=== PATIENT | male | born 1970 | race Caucasian/White ===

== ENCOUNTER 2018-05-28 15:42 | Emergency (ER) | payer OTHER, SELFPAY ==
[2018-05-28 15:43] VITALS: BP 148/81; PULSE 73; RESP 16; TEMP 36.7; O2SAT 100; BMI 29.3
--- NOTE | 2018-05-28 15:52 | ED.VISSUMM ---
- ER Visit Summary Date of Service: 05/28/18 Chief Complaint: Back pain History of Present Illness: The patient is a 47 M who has had back pain for 26 years. The pain is in the lumbar part of his back. It does not radiate. Denies numbness or tingling. He denies urinary retention or incontinence. No constipation. He saw his primary care physician who gave him naproxen and Flexeril. He is out of both of these medications. Physical Examination: Vital signs reviewed. Heart is regular rate and rhythm. Lungs are clear. Abdomen soft and nontender. Back exam reveals no tenderness. His neurologic exam including reflexes is normal Test Results: None performed Emergency Department Course and Treatment: She will be given doses of Norflex and Toradol here. I will given prescriptions for naproxen and Flexeril at home. He will follow-up with his PCP for further medications. Treatment Plan: [] Disposition: Discharge Impression: Acute on chronic back pain This note was generated with [employer] dictation software. It may contain incorrect words, spelling, and punctuation that were not noted in review of the chart prior to signing ED Disposition - Plan for ED Patient: Chief Complaint: Back Referrals: Mireille Avalos MD [Primary Care Provider] -
--- NOTE | 2018-05-28 15:54 | ED.DEP ---
ED Disposition - Plan for ED Patient: Disposition: Home or Assisted Living Chief Complaint: Back Instructions: ED Neck Back Pain General Prescriptions: Naproxen [Naprosyn] 500 mg PO BID PRN #20 tab Cyclobenzaprine [Flexeril] 10 mg PO TID PRN #20 tab PRN Reason: Muscle Spasm Referrals: Mireille Avalos MD [Primary Care Provider] -
[2018-05-28] MEDS: Ketorolac 60 MG/2 ML Vial IM (16:04)
[2018-05-28] MEDS: Orphenadrine 60 MG/2 ML Ampul IM (16:05)
[2018-05-28 16:22] VITALS: BP 137/78; PULSE 85; RESP 16; O2SAT 98
== END 2018-05-28 16:23 | disposition home or self-care (01) ==
LOC: ED 16:17
PROVIDERS: Emergency Provider Emergency Medicine; Family Provider Internal Medicine; PCP Internal Medicine
DX: M54.5 Low back pain (principal); G89.29 Other chronic pain
CPT/HCPCS: 96372; 99282

== ENCOUNTER 2022-03-16 12:54 | Emergency (ER) | payer BC, SELFPAY ==
[2022-03-16 12:56] VITALS: BP 139/105; PULSE 100; RESP 15; TEMP 36.2; O2SAT 98; BMI 27.4
--- NOTE | 2022-03-16 13:46 | MRI_ITS ---
STUDY: MRI BRAIN WITHOUT CONTRAST REASON FOR EXAM: Male, 51 years old. Headache x9 months, TECHNIQUE: Standardized multiplanar fat and water weighted pulse sequences were obtained. COMPARISON: None. FINDINGS: Normal size of the ventricles and extra-axial spaces for the patient''s age. Normal white matter tracts of the supratentorial brain. Normal bilateral basal ganglia. Normal thalami. There is no extra-axial fluid accumulation. Normal flow voids within the major intracranial circulation suggesting patency by spin echo criteria. Normal sella turcica, pituitary gland, infundibular stalk, optic chiasm and hypothalamus. Normal tectal plate and pineal gland. Normal midbrain, elias and medulla. Normal cerebellum. Normal basal cisterns. Normal bilateral temporal bones. Normal bilateral internal auditory canals. No demonstrated orbital abnormality, within the constraints of a routine brain study. Normal visualized paranasal sinuses. Normal calvarium and skull base. Normal visualized soft tissue structures. Normal visualized upper cervical spine. MRI/Brain without Contrast IMPRESSION: Normal unenhanced MRI of the brain. Electronically Signed: Low Felix MD at 15:33 EST ,
[2022-03-16] MEDS: Metoclopramide 10 MG/2 ML Vial IV (14:00)
[2022-03-16] MEDS: DiphenhydrAMINE 50 MG/ML Syringe 25 MG IV (14:00)
[2022-03-16] MEDS: Ketorolac 15 MG/ML Vial IV (14:00)
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
[2022-03-16 14:23] LABS: Erythrocyte Sedimentation Rate 3 mm/hr (0-20)
== END 2022-03-16 15:51 | disposition home or self-care (01) ==
PROVIDERS: Emergency Provider Emergency Medicine; PCP Internal Medicine; Visit Provider Emergency Medicine
DX: R51.9 Headache, unspecified (principal); R11.0 Nausea; R03.0 Elevated blood-pressure reading, without diagnosis of hypertension; G89.29 Other chronic pain
CPT/HCPCS: 70551; 85652; 96374; 96375; 99283; A4216

== ENCOUNTER 2023-10-12 14:58 | Emergency (ER) | payer BC, SELFPAY ==
[2023-10-12 15:00] VITALS: BP 128/88; PULSE 70; RESP 14; TEMP 36.2; O2SAT 100; BMI 28.0
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
[2023-10-12] MEDS: Acetaminophen 500 MG Tablet 1000 MG PO (16:02)
[2023-10-12 17:00] VITALS: BP 126/82; PULSE 74; RESP 18; O2SAT 95
[2023-10-12 17:23] VITALS: BP 126/82; PULSE 74; RESP 18; TEMP 36.4; O2SAT 95
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
== END 2023-10-12 17:26 | disposition home or self-care (01) ==
PROVIDERS: Emergency Provider Emergency Medicine; PCP Internal Medicine; Visit Provider Emergency Medicine
DX: S06.0X0A Concussion without loss of consciousness, initial encounter (principal); Y92.410 Unspecified street and highway as the place of occurrence of the external cause; V43.52XA Car driver injured in collision with other type car in traffic accident, initial encounter; W22.10XA Striking against or struck by unspecified automobile airbag, initial encounter
CPT/HCPCS: 70450; 99282